=== PATIENT | female | born 1950 | race Caucasian/White ===

== ENCOUNTER 2017-02-19 23:08 | Inpatient (IN) | payer MEDICARE ==
[~2017-02-19] VITALS: Ht 152.4 cm; Wt 123.7 kg
[~2017-02-19 23:08] MED LIST: FUROSEMIDE20 MG PO; OXYBUTYNIN CHLORIDE PO
[2017-02-20] VITALS (21 sets, daily range): BP systolic 87–182; BP diastolic 57–110; Ht 152.4 cm; Wt 123.7 kg
[2017-02-20] LABS: HEMATOCRIT 25.8 % (36.0-48.0); HEMOGLOBIN 8.6 g/dL (12-16); MCH 31.4 pg (26.0-34.0); MCHC 33.3 g/dL (31.0-37.0); MCV 94.2 fL (80.0-100.0); MEAN PLATELET VOLUME 11.5 fL (7.4-10.4); PLATELET COUNT 200 10x3/uL (130-400); RBC 2.74 10x6/uL (4.00-5.40); RDW 14.4 % (11.5-14.5); WBC 38.7 10x3/uL (4.8-10.8)
[2017-02-20 00:23] LABS: EOSINOPHILS 1 % (0-7); LYMPHOCYTES 5 % (15-50); MONOCYTES 7 % (2-11); NEUTROPHILS 87 % (40-80); PLATELET ESTIMATE NORMAL
[2017-02-20 00:47] LABS: ALBUMIN 2.1 g/dL (3.4-5.0); ALT (SGPT) 23 U/L (10-68); BILIRUBIN - TOTAL 0.53 mg/dL (0.2-1.3); CALC OSMOLALITY 264 mosm/kg (275-300); CALCIUM 8.2 mg/dL (8.5-10.1); CHLORIDE - SERUM 91 mmol/L (98-107); CKMB 0.2 U/L (0.0-3.6); CREATINE KINASE 33 UL (21-215); CREATININE - SERUM 2.5 mg/dL (0.6-1.3); GLUCOSE 143 mg/dL (74-106); POTASSIUM - SERUM 4.5 mmol/L (3.5-5.1); PRO BNP 14117 pg/mL (0-125); PROTEIN - SERUM 6.6 g/dL (6.4-8.2); SODIUM 128 mmol/L (136-145); UREA NITROGEN 30 mg/dL (7-18); eGFR NON AFRICAN AMERICAN 20 mL/min (90-120)
[2017-02-20 01:12] LABS: APPEARANCE TURBID (CLEAR); BILIRUBIN NEGATIVE (NEGATIVE); COLOR YELLOW (YELLOW); GLUCOSE NEGATIVE (NEGATIVE); KETONE NEGATIVE (NEGATIVE); LEUKOCYTE ESTERASE 2+ (NEGATIVE); NITRITE POSITIVE (NEGATIVE); PROTEIN 2+ mg/dL (NEGATIVE); SPECIFIC GRAVITY 1.005 (1.005-1.020); UROBILINOGEN NORMAL (NORMAL)
[2017-02-20 01:15] LABS: BACTERIA MANY /hpf (NONE SEEN); EPITHELIAL CELLS 0-5 /hpf (0-5); WHITE CELLS - URINE >50 /hpf (0-5)
[2017-02-20 01:16] LABS: ALKALINE PHOSPHATASE 145 U/L (46-116)
--- NOTE | 2017-02-20 04:45 | NUR ---
ARRIVED TO ROOM 2308. ASSISTED X4 TO ICU BED. UNABLE TO DO MUCH MOVEMENT ON HER OWN. RT SIDE WEAK FROM STROKE IN NOVEMBER. TAPE OF RT ARM/SHOULDER FROM REHAB FACILITY. GENERALIZED EDEMA NOTED. INCONTINENT BRIEF ON AND ASSESSED POSTERIOR AREA. SLIGHT RED IN COLOR TO BUTTOCKS/PERINEAL AREA BUT NO PRESSURE ULCERS NOTED. LEFT AC PIV WITH NS INFUSING. O2 @ 2LPM/NC. PLACED ON CONTINUOUS CARDIAC MONITORING-HR 130-140'S AFIB/FLUTTER. B/P 100'S SYSTOLIC. LETHARGIC BUT ANSWERS SOME QUESTIONS. UNABLE TO GET SOME QUESTIONS ANSWERED. GLOVER PLACED IN SENIOR LIVING TO GRAVITY WITH YELLOW, SEDIMENT FILLED URINE-16 SRI LANKAN GLOVER. REPORTS COMING TO ER DUE TO FEVER. NS @ 100ML/HR STARTED VIA ALARIS IV PUMP. LEFT FA 20G PIV SALINE LOCKED. WILL MONITOR.
[2017-02-20] MEDS ORDERED: LIPITOR40 MG PO (05:19)
[2017-02-20] MEDS ORDERED: ULTRAM50 MG PO (05:21)
[2017-02-20] MEDS ORDERED: ACETAMINOPHEN325 MG PO (05:22)
[2017-02-20] MEDS ORDERED: MILK OF MAGNESI30 ML PO (05:22)
[2017-02-20] MEDS ORDERED: GAS-X80 MG PO (05:23)
[2017-02-20] MEDS ORDERED: ROBAXIN500 MG PO (05:24)
[2017-02-20 05:26] LABS: CKMB 0.3 U/L (0.0-3.6); CREATINE KINASE 22 UL (21-215)
[2017-02-20] MEDS ORDERED: NOVOLOG100 U/M1 SC ×2 (05:26→05:28)
[2017-02-20 05:27] LABS: TROPONIN-I 0.106 ng/mL (0.000-0.060)
[2017-02-20] MEDS ORDERED: NOVOLOG100 U/M1 SQ (05:29)
[2017-02-20] MEDS ORDERED: NYSTATIN1 PWD TOPICAL (05:31)
[2017-02-20] MEDS ORDERED: KLOR-CON M2020 MEQ PO (05:34)
[2017-02-20] MEDS ORDERED: PROTONIX40 MG PO (05:34)
[2017-02-20] MEDS ORDERED: METOPROLOL TART50 MG PO (05:35)
[2017-02-20] MEDS ORDERED: GLUCOPHAGE500 MG PO (05:36)
[2017-02-20] MEDS ORDERED: ZINC-220220 MG PO (05:39)
[2017-02-20] MEDS ORDERED: ASCORBIC ACID500 MG PO (05:39)
[2017-02-20] MEDS ORDERED: CENTRUM SILVER1 TA1 PO (05:41)
[2017-02-20] MEDS ORDERED: PLAVIX75 MG PO (05:42)
[2017-02-20] MEDS ORDERED: LANTUS SOL100 UNIT/1 SC (05:45)
[2017-02-20] MEDS ORDERED: PRINIVIL20 MG PO (05:46)
--- NOTE | 2017-02-20 05:51 | NUR ---
DR. BEDOLLA CONSULTED AND INFORMED OF HEART RATE AND TROPONIN RESULTS. NEW ORDERS RECEIVED.
--- NOTE | 2017-02-20 10:26 | NUR ---
0700 RECEIVED PT RESTING IN BED EYES CLOSED, WILL OPEN EYES TO SPEECH AND ANSWERS QUESTIONS APPROP. HR ELEVATED IN 130-140'S A FIB. NO TEMP NOTED. NO COMPLAINTS AND NO REQUEST AT THIS TIME. 0800 PAGED TUBE MOLDER FIBERGLASS AND NEW ORDERS RECEIVED FOR LOPRESSOR 10MG IV Q 4, 1ST DOSE GIVEN, NO AFFECT NOTICED, HR REMAINS ELEVATED. 0930 TUBE MOLDER FIBERGLASS IN UNIT, ASSESSED PT, AWARE OF ELEVATED HR, NEW ORDER FOR BETAPACE 120MG PO, FIRST DOSE GIVEN. PT CHOKES AND COUGHS WITH THIN WATER, ST CONSULT ORDERED BY . 1000 PCP IN UNIT FOR ROUNDS ASSESSED PT, QUESTIONS ANSWERED, DNR DIGNED BY MD AND ORANGE SHEET PLACED IN FRONT OF CHART. PT RESTING QUIETLY NO COMPLAINTS AT THIS TIME. HR REMAINES IN 120-140'S A FIB.
--- NOTE | 2017-02-20 10:58 | NUR ---
PAGED CARDIOLIOGIST BACK AT 1050 RETURNED CALL AT 1051 INFORMED OF CONTINUED ELEVATED HR, NO NEW ORDERS GIVEN,STATED HE WAS OK WITH HEART RATE AT THIS TIME. DID NOT WANT TO ADD ANY MORE MEDS. WILL CONT TO MONITOR
[2017-02-20 11:18] LABS: CKMB 0.6 U/L (0.0-3.6); CREATINE KINASE 25 UL (21-215)
[2017-02-20 16:46] LABS: CKMB 0.6 U/L (0.0-3.6); CREATINE KINASE 23 UL (21-215)
[2017-02-20 16:49] LABS: TROPONIN-I 0.095 ng/mL (0.000-0.060)
--- NOTE | 2017-02-20 23:30 | NUR ---
1939- REPORT RECVD. CARE ASSUMED. INITIAL ASSMNT COMPLETED. SEE FLOWSHEET FOR ALL FINDINGS. AOX4. PERRLA. RIGHT SIDED WEAKNESS WITH IMPAIRED ROM NOTED. RESP UNLABORES. HYPERTENSIVE. UCAFIB ON THE MONITOR. LOPRESSOR GIVEN. HOB UP. C/L IN REACH. CONT POC. 2029- INCONTINENT OF BOWEL. BATH GIVEN. LINENS CHANGED. POSITIONED FOR COMFORT. 2129- HS MEDS GIVEN IN PUDDING TO PROMOTE SWALLOWING. NO SIG CHANGES. 2329- REASSESSMENT COMPLETED. SEE FLOWSHEET. TURNED AND REPOSITIONED. PRM TRAMADOL EFFECTIVE WITH DECREASING DISCOMFORT.
[2017-02-21] VITALS (24 sets, daily range): BP systolic 128–183; BP diastolic 81–136
--- NOTE | 2017-02-21 01:30 | NUR ---
TURNED AND REPOSITIONED. PO FLUIDS AT BEDSIDE. VSS. HYPERTENSIVE. UCAFIB ON THE MONITOR. DENIES DISCOMFORT. HOB UP. C/L IN REACH. CONT CURRENT POC.
--- NOTE | 2017-02-21 03:30 | NUR ---
REASSESSMENT COMPLETED. SEE FLOWSHEET FOR ALL FINDINGS. TURNED AND REPOSITIONED. RESTING. VSS. UCAFIB ON THE MONITOR. F/C PATENT WITH DARK UOP. HOB UP. C/L IN REACH. CONT CURRENT POC.
--- NOTE | 2017-02-21 05:00 | NUR ---
TURNED AND REPOSITIONED. PO FLUIDS PROVIDED. DENIES NEEDS. VSS. HOB UP. C/L IN REACH. CONT POC.
--- NOTE | 2017-02-21 10:26 | NUR ---
0700 RECEIVED PT IN BED EYES OPEN AWAKE ALERT ORIENTED, NO DISTRESS NOTED, NO COMPLAINTS. SEE ASSESSMENT. 0730 BREAKFAST GIVEN, PT CONSUMED APPROX 25% 0800 PT NOTED TO HAVE BM, LINES CHANGED AND PT REPOSITIONED, PRN PAIN MED GIVEN, PT C/O PAIN 01/23 GENERAL 1000 NO COMPLAINTS IN BED RESTING QUEITLY AT THIS TIME.
[2017-02-21 11:36] LABS: BASOPHILS 0.1 % (0-2); EOSINOPHILS 0 % (0-7); HEMATOCRIT 26.4 % (36.0-48.0); HEMOGLOBIN 8.6 g/dL (12-16); IMMATURE GRANULOCYTES 3.9 % (0-5); LYMPHOCYTES 3.4 % (15-50); MCH 30.8 pg (26.0-34.0); MCHC 32.6 g/dL (31.0-37.0); MCV 94.6 fL (80.0-100.0); MEAN PLATELET VOLUME 11.5 fL (7.4-10.4); MONOCYTES 10.4 % (2-11); NEUTROPHILS 82.2 % (40-80); PLATELET COUNT 185 10x3/uL (130-400); RBC 2.79 10x6/uL (4.00-5.40); RDW 14.8 % (11.5-14.5); WBC 28.7 10x3/uL (4.8-10.8)
[2017-02-21 11:43] LABS: ANION GAP 19.6 mmol/L (8-16); CALCIUM 7.9 mg/dL (8.5-10.1); CARBON DIOXIDE 21.1 mmol/L (21.0-32.0); CREATININE - SERUM 2.9 mg/dL (0.6-1.3); POTASSIUM - SERUM 4.7 mmol/L (3.5-5.1)
--- NOTE | 2017-02-21 23:30 | NUR ---
1929- REPORT RECVD. CARE ASSUMED. SHIFT ASSESSMENT COMPLETED PER FLOWSHEET. SEE FOR ALL FINDINGS. AWAKE AND AOX4. PERRLA. RIGHT SIDED WEAKNESS NOTED. RESP SHALLOW. LUNG SOUNDS DIM THRU OUT. SPO2 95% ON O2 AT 2 LPM NC. UCAFIB ON THE MONITOR. LOPRESSOR IN USE. HR 114. SYS B/P WITHIN PARAMETERS. PULSES PALP. GENERALIZED EDEMA PRESENT. ABD SOFT, BSA X4. F/C PATENT WITH DARK UOP. AFEBRILE. RECENTLY BATHED AND REPOSITIONED. DENIES NEEDS. HOB UP. C/L IN REACH. CONT CURRENT POC. 2129- HS MEDS GIVEN IN WHOLE IN PUDDING. PRN ULTRAM GIVEN FOR INCREASED PAIN LEVEL. TURNED AND REPOSITIONED. VSS. HOB UP. C/L IN REACH. CONT CURRENT POC. 2329- REASSESSMENT COMPLETED. SEE FLOWSHEET FOR ALL FINDINGS. TURNED AND REPOSITIONED. RESTING. VSS. UCAFIB ON THE MONITOR. AFEBRILE. SCDS ON. EXTREMITIES ELEVATED. HEELS BRIDGED. F/C PATENT WITH DARK UOP. HOB UP. C/L IN REACH. CONT CURRENT POC.
[2017-02-22] VITALS (25 sets, daily range): BP systolic 97–153; BP diastolic 64–118
--- NOTE | 2017-02-22 01:30 | NUR ---
TURNED AND REPOSITIONED. DENIES NEEDS. VSS. UCAFIB ON THE MONITOR. SPO2 96%. HOB UP. C/L AND PO FLUIDS IN REACH. CONT CURRENT POC.
--- NOTE | 2017-02-22 03:30 | NUR ---
REASSESSMENT COMPLETED. SEE FLOWSHEET FOR ALL FINDINGS. TURNED AND REPOSITIONED. RESTING. VSS. UCAFIB ON THE MONITOR. PRN ULTRAM GIVEN FOR INCREASED PAIN LEVEL. AFEBRILE. SCDS ON. EXTREMITIES ELEVATED. HEELS BRIDGED. F/C PATENT WITH DARK UOP. HOB UP. C/L IN REACH. CONT CURRENT POC.
[2017-02-22 04:29] LABS: BASOPHILS 0.3 % (0-2); EOSINOPHILS 0.2 % (0-7); HEMATOCRIT 26.7 % (36.0-48.0); HEMOGLOBIN 8.8 g/dL (12-16); IMMATURE GRANULOCYTES 5.7 % (0-5); LYMPHOCYTES 4.2 % (15-50); MCH 30.7 pg (26.0-34.0); MEAN PLATELET VOLUME 11.6 fL (7.4-10.4); MONOCYTES 13.5 % (2-11); NEUTROPHILS 76.1 % (40-80); PLATELET COUNT 179 10x3/uL (130-400); RBC 2.87 10x6/uL (4.00-5.40); RDW 14.8 % (11.5-14.5); WBC 27.6 10x3/uL (4.8-10.8)
[2017-02-22 04:38] LABS: ANION GAP 17.3 mmol/L (8-16); CALCIUM 7.4 mg/dL (8.5-10.1); CARBON DIOXIDE 22.6 mmol/L (21.0-32.0); CREATININE - SERUM 2.7 mg/dL (0.6-1.3)
[2017-02-22 04:42] LABS: POTASSIUM - SERUM 3.9 mmol/L (3.5-5.1)
--- NOTE | 2017-02-22 05:25 | NUR ---
RESTING WITH NO DISTRESS. VSS. DENIES NEEDS. TURNED AND REPOSITIONED. HOB UP. C/L IN REACH. CONT CURRENT POC.
--- NOTE | 2017-02-22 06:50 | NUR ---
SMALL LIQUID STOOL. BATH GIVEN. LINENS CHANGED.
--- NOTE | 2017-02-22 07:30 | NUR ---
PATIENT REPORT RECEIVED, AND CARE TAKEN OVER PATIENT.
--- NOTE | 2017-02-22 08:23 | NUR ---
PATIENT ASSESSMENT COMPLETED SEE SHIFT ASSESSMENT. PATIENT IS ALERT AND ORIENTED ABLE TO COMMNUNICATES NEEDS WELL. PATIENT DOES SEEM TO HAVE TO STRAIN TO GET WORDS TO COME OUT IN FORM BUT SHE DOES WELL COMMUNICATING
--- NOTE | 2017-02-22 09:05 | NUR ---
PATIENT HAD MUCOUSY DIARRHEA INCONTENCE. PATIENT CLEANED, NYSTOP APPLIED PER ORDER, AND BARRIER CREAM APPLIED TO BUTTOCKS.
--- NOTE | 2017-02-22 09:20 | NUR ---
NUTRITION MONITORING & EVAL CHART REVIEWED. RENAL ADA DIET WITH ~ 50% INTAKE RECENT MEALS. WILL CONTINUE TO PROVIDE DIET, MONITOR PO INTAKE. RD FOLLOWING
--- NOTE | 2017-02-22 10:20 | NUR ---
DR. HURLEY HERE, IN TO SEE PATIENT AND FAMILY. SPOKE WITH FAMILY ABOUT PATIENT BEING ON HOSPICE.
--- NOTE | 2017-02-22 11:19 | NUR ---
RUFINA HERE TO ASK PATIENT QUESTIONS ABOUT/FOR MEDICAID. PATIENT IS AWAKE AND ABLE TO ANSWER QUESTIONS.
--- NOTE | 2017-02-22 12:15 | NUR ---
PATIENT IS AWAKE AND READY FOR LUNCH. ASSISTED PATIENT IN SETTING UP TRAY, AND PREPARING FOOD FOR PATIENT TO EAT.
--- NOTE | 2017-02-22 14:00 | NUR ---
PATIENT IS RESTING AT THIS TIME. CALL LIGHT WITHIN REACH AND BED IN LOW POSISTION.
--- NOTE | 2017-02-22 16:40 | NUR ---
PATIENT'S BLOOD PRESSURE HAS BEEN TRENDING LOWER. METOPROLOL HELD AT THIS TIME DUE TO BLOOD PRESSURE.
--- NOTE | 2017-02-22 18:35 | NUR ---
DAUGHTER IN ROOM VISITING WITH PATIENT AT THIS TIME. SHE STATES HER MOTHER IS VERY DIFFERENT THESE LAST FEW DAYS THAN HER NORMAL. PATIENT'S HEAD IS DIVIATED TO THE LEFT, THAT IS NEW, AND SHE SAYS THAT SHE IS MUCH WEAKER THAN NORMAL.
--- NOTE | 2017-02-22 19:45 | NUR ---
REPORT RECIEVED, SHIFT ASSESSMENT COMPLETE, PT IS ALERT AND ORIENTED, ON 2L NC WITH 97% O2 SAT, LUNGS DIMINISHED IN ALL LOBES, CM-AFIB, PATENT LEFT FA PIV...SEE FLOW SHEET, ABDOMEN IS SOFT AND ROUND WITH ACTIVE BS, PATENT F/C WITH CONCENTRATED UOP, EDEMA NOTED IN ALL EXTREMETIES, ALL PPP, VSS, CALL LIGHT IN REACH
--- NOTE | 2017-02-22 21:15 | NUR ---
NO VISITORS AT THIS TIME, WILL CON'T TO MONITOR
--- NOTE | 2017-02-22 23:14 | NUR ---
REASSESSMENT COMPLETE, PT RESTING AT THIS TIME, NO NEEDS NOTED, WILL CON'T TO MONITOR
[2017-02-23] VITALS (26 sets, daily range): BP systolic 80–143; BP diastolic 28–99
--- NOTE | 2017-02-23 01:00 | NUR ---
REPOSITONED FOR COMFORT,
--- NOTE | 2017-02-23 03:15 | NUR ---
REASSESSMENT COMPLETE, NO CHANGES NOTED, PT REPOSITIONED FOR COMFORT, WILL CON'T TO MONITOR
[2017-02-23 05:19] LABS: BASOPHILS 0.3 % (0-2); EOSINOPHILS 0.2 % (0-7); HEMATOCRIT 28.7 % (36.0-48.0); HEMOGLOBIN 9.6 g/dL (12-16); LYMPHOCYTES 5.2 % (15-50); MCH 31.4 pg (26.0-34.0); MCHC 33.4 g/dL (31.0-37.0); MCV 93.8 fL (80.0-100.0); MEAN PLATELET VOLUME 11.8 fL (7.4-10.4); MONOCYTES 15.6 % (2-11); NEUTROPHILS 67.7 % (40-80); PLATELET COUNT 183 10x3/uL (130-400); RBC 3.06 10x6/uL (4.00-5.40); RDW 15.2 % (11.5-14.5)
[2017-02-23 05:36] LABS: ANION GAP 16.4 mmol/L (8-16); CALCIUM 7.8 mg/dL (8.5-10.1); CARBON DIOXIDE 22.8 mmol/L (21.0-32.0); CREATININE - SERUM 2.7 mg/dL (0.6-1.3)
[2017-02-23 05:38] LABS: POTASSIUM - SERUM 3.2 mmol/L (3.5-5.1)
--- NOTE | 2017-02-23 06:00 | NUR ---
NO VISITORS AT THIS TIME, WILL CON'T TO MONITOR
--- NOTE | 2017-02-23 07:10 | NUR ---
DR. AKHTAR IN ROOM TO SEE PATIENT. HE WILL WRITE NEW ORDERS FOR THIS PATIENT.
--- NOTE | 2017-02-23 07:33 | NUR ---
WILL CONSULT ID FOR PATIENT PER MD ORDER.
--- NOTE | 2017-02-23 08:45 | NUR ---
DR. NICOLE CALLED FOR CONSULT, AND SHE STATED SHE WOULD SEE PATIENT THIS AFTERNOON.
--- NOTE | 2017-02-23 11:30 | NUR ---
PATIENT SLEEPING NO DISTRESS NOTED AT THIS TIME. CALL LIGHT WITH IN REACH BED IS IN LOW POSITION.
--- NOTE | 2017-02-23 13:00 | NUR ---
PATIENT DID NOT WANT MUCH LUNCH, HAD DIFFUCULTY SWALLOWING PILLS DOES REQUIRE PUDDING WITH MEDS. PATIENT DENIES ANY NEEDS AT THIS TIME.
--- NOTE | 2017-02-23 15:30 | NUR ---
PATIENT SLEEPING NO CHANGES IN CONDITION
--- NOTE | 2017-02-23 15:40 | NUR ---
* Is the patient Alert and Oriented? Yes 0 * Preadmission Environment [facility] 0 * Facility Name [facility] 0 * ADLs Partial Dependent 0 * Partial ADLs (Assistance needed) Ambulation Bathing Dressing Medication Management Toileting Transfers 0 * List name and contact numbers for known caregivers / representatives who currently or will assist patient after discharge: Ronnell Wells [phone] 0 * Can the patient safely return to the preadmission environment? Yes 0 * Has this patient been hospitalized within the prior 30 days at any hospital? No 02/23/2017 15:41 DCP: Discharge Planning Patient Name: HOMER CHANG Admission Status: ER Accout number: [id number] Admission Date: 02-20-2017 : 1950 Admission Diagnosis:DISORIENTATION, UNSPECIFIED Attending: MIGUEL Current LOS: 3 Planned Disposition: [facility] Primary Insurance: MEDICARE A & B Discharge Planning Comments: Patient awake & alert - very fatigued. Answers few questions but becomes extremely fatigued. Call placed to Nikki reynaga - voice message left for her to return call. Confirmed with [facility] that patient was there prior to admission in senior living bed. They will accept patient back at discharge. Awaiting return call from ronnell. CM will follow & assist as needed. Director Of Publications: Alicia Lynn
--- NOTE | 2017-02-23 17:33 | NUR ---
METOPROLOL HELD DUE TO BLOOD PRESSURE. PATIENT IS STILL SLEEPY BUT AROUSES EASILY TO VERBAL STIMULI.
[2017-02-23 18:51] LABS: APPEARANCE HAZY (CLEAR); BILIRUBIN NEGATIVE (NEGATIVE); COLOR YELLOW (YELLOW); GLUCOSE NEGATIVE (NEGATIVE); KETONE NEGATIVE (NEGATIVE); LEUKOCYTE ESTERASE TRACE (NEGATIVE); NITRITE NEGATIVE (NEGATIVE); PROTEIN TRACE mg/dL (NEGATIVE); SPECIFIC GRAVITY 1.015 (1.005-1.020); UROBILINOGEN NORMAL (NORMAL)
[2017-02-23 18:52] LABS: BACTERIA MODERATE /hpf (NONE SEEN); EPITHELIAL CELLS 0-5 /hpf (0-5); RED CELLS - URINE 25-50 /hpf (0-5); WHITE CELLS - URINE 0-5 /hpf (0-5)
--- NOTE | 2017-02-23 19:15 | NUR ---
REPORT RECVD. CARE ASSUMED. INITIAL ASSMNT COMPLETED. SEE FLOWSHEET FOR ALL FINDINGS. RESTING WITH EYES CLOSED. AROUSES TO VOICE EASILY. AOX4. APHASIC. PERRLA.RIGHT SIDE FLACCID. RESP UNLABORED. SHALLOW. LUNG SOUNDS DIM THRU OUT. UCAFIB ON THE MONITOR. PULSES PALP, WEAK X4. GENERALIZED EDEMA NOTED. AFEBRILE. SCDS IN USE. ABD SOFT, DISTENDED WITH HYPO BS X 4. F/C PATENT WITH CLOUDY YELLOW UOP. TURNED AND REPOSITIONED FOR COMFORT AND SKIN INTEGRITY. HOB UP. C/L IN REACH. CONT CURRENT POC.
--- NOTE | 2017-02-23 21:00 | NUR ---
HOSPOCE NURSE AT BEDSIDE WITH THIS NURSE TO ASSESS NEED FOR/DESIRE FOR HOSAPINE. PT IS AOC4. APHASIC BUT ABLE TO COMMUNICATE WELL. PT REFUSED HOSPICE VERBALLY THREE TIMES. HOSPICE NURSE AND I SPOKE WITH DAUGHTER ANS ALL AGREED HOSPICE SERVICES ARE NOT NEEDED AT THIS TIME. HS MEDS GIVEN. TURNED AND REPOSITIONED. PRN ULTRAM PROVIDED FOR PAIN CONTROL. HOB UP. C/L IN REACH. CONT CURRENT POC.
--- NOTE | 2017-02-23 23:15 | NUR ---
REASSESSMENT COMPLETED. SEE FLOWSHEET FOR ALL FINDINGS. RESTING WITH EYES CLOSED. AROUSES TO VOICE EASILY. AOX4. APHASIC. PERRLA.RIGHT SIDE FLACCID. RESP UNLABORED. SHALLOW. LUNG SOUNDS DIM THRU OUT. UCAFIB ON THE MONITOR. PULSES PALP, WEAK X4. GENERALIZED EDEMA NOTED. AFEBRILE. SCDS IN USE. ABD SOFT, DISTENDED WITH HYPO BS X 4. F/C PATENT WITH CLOUDY YELLOW UOP. TURNED AND REPOSITIONED FOR COMFORT AND SKIN INTEGRITY. HOB UP. C/L IN REACH. CONT CURRENT POC.
[2017-02-24] VITALS (25 sets, daily range): BP systolic 99–149; BP diastolic 57–87
--- NOTE | 2017-02-24 01:15 | NUR ---
TURNED AND REPOSITIONED. VSS. NO SIG CHANGES. NO NEEDS VOICED. HOB UP. C/L IN REACH. CONT CURRENT POC.
--- NOTE | 2017-02-24 03:15 | NUR ---
REASSESSMENT COMPLETED. SEE FLOWSHEET FOR ALL FINDINGS. RESTING WITH EYES CLOSED. AROUSES TO VOICE EASILY. AOX4. APHASIC. PERRLA.RIGHT SIDE FLACCID. RESP UNLABORED. SHALLOW. LUNG SOUNDS DIM THRU OUT. UCAFIB ON THE MONITOR. PULSES PALP, WEAK X4. GENERALIZED EDEMA NOTED. AFEBRILE. SCDS IN USE. ABD SOFT, DISTENDED WITH HYPO BS X 4. F/C PATENT WITH CLOUDY YELLOW UOP. TURNED AND REPOSITIONED FOR COMFORT AND SKIN INTEGRITY. HO UP. C/L IN REACH. CONT CURRENT POC.
[2017-02-24 04:39] LABS: BASOPHILS 0.5 % (0-2); EOSINOPHILS 0.2 % (0-7); HEMATOCRIT 28.7 % (36.0-48.0); HEMOGLOBIN 9.6 g/dL (12-16); IMMATURE GRANULOCYTES 19.9 % (0-5); LYMPHOCYTES 7.7 % (15-50); MCH 31.2 pg (26.0-34.0); MCHC 33.4 g/dL (31.0-37.0); MCV 93.2 fL (80.0-100.0); MONOCYTES 22.3 % (2-11); NEUTROPHILS 49.4 % (40-80); PLATELET COUNT 194 10x3/uL (130-400); RBC 3.08 10x6/uL (4.00-5.40); RDW 15.2 % (11.5-14.5); WBC 30.5 10x3/uL (4.8-10.8)
[2017-02-24 04:55] LABS: ANION GAP 12.8 mmol/L (8-16); CARBON DIOXIDE 26.2 mmol/L (21.0-32.0); CREATININE - SERUM 2.6 mg/dL (0.6-1.3); PHOSPHOROUS 3.9 mg/dL (2.5-4.9)
--- NOTE | 2017-02-24 05:20 | NUR ---
BATH GIVEN. LINENS CHANGED. AIR OVERLAY IN USE. VSS. POSITIONED FOR COMFORT. HOB UP. C/L IN REACH. CONT CURRENT POC.
--- NOTE | 2017-02-24 08:24 | NUR ---
SHIFT ASSESSMENT COMPLETE. PATIENT DECLINES BREAKFAST AT THIS TIME, STATES SHE JUST WANTS TO SLEEP.
--- NOTE | 2017-02-24 09:59 | NUR ---
NUTRITION MONITORING & EVAL CHART REVIEWED, PT SLEEPING. NO INTAKE RENAL ADA BREAKFAST. WILL CHANGE DIET ORDER TO HAVE MEATS CHOPPED. RD FOLLOWING
--- NOTE | 2017-02-24 10:22 | NUR ---
DR. HURLEY HERE IN TO SEE PATIENT NEW ORDERS RECEIVED AND NOTED.
--- NOTE | 2017-02-24 10:45 | NUR ---
PATIENT SLEEPING AROUSES TO VERBAL STIMULI EASILY. PATIENT HAS CYANOTIC NAILBEDS WORSE ON R HAND THAN LEFT. DR. SERVIN HERE IN TO SEE PATIENT AND AWARE OF NAILBEDS AND MOTTLING.
--- NOTE | 2017-02-24 11:30 | NUR ---
NEW ORDERS RECEIVED FROM DR. CANDELARIA. IVF INCREASED TO 50ML ORDERED.
--- NOTE | 2017-02-24 13:00 | NUR ---
PATIENT SLEEPING WELL AROUSES TO VERBAL STIMULI. REPOSISTIONED FOR COMFORT.
--- NOTE | 2017-02-24 16:20 | NUR ---
IV SITE IS EDEMATOUS AND LEAKING AT SITE WITH REDNESS AT SITE. IV DC'D AND WILL LOOK FOR NEW SITE.
--- NOTE | 2017-02-24 17:00 | NUR ---
ATTEMPTED IV X2 STICKS AND UNSUCCESSFUL. DR. GUALLPA CONSULTED FOR CENTRAL LINE.
--- NOTE | 2017-02-24 17:56 | NUR ---
CONSENT RECEIVED VERBALLY FROM PATIENT AND DAUGHTER VIA PHONE FOR CENTRAL LINE PLACEMENT.
--- NOTE | 2017-02-24 18:08 | NUR ---
DR. PERRY HERE TO INSERT CENTRAL LINE.
--- NOTE | 2017-02-24 19:20 | NUR ---
REPORT RECIEVED. ASSESSMENT COMPLETE PER FLOW SHEET. VSS WILL CONTINUE TO MONITOR
--- NOTE | 2017-02-24 21:17 | NUR ---
FAMILY AT BEDSIDE. GIVEN UPDATE. ATE 40% OF PM MEAL WITH ASSISTANCE. VSS WILL CONTINUE TO MONITOR
--- NOTE | 2017-02-24 23:20 | NUR ---
REASSESSMENT COMPELTE PER FLOW SHEET. VSS. NO NEW CHAGNES. WILL CONTINUE TO MONITOR
[2017-02-25] VITALS (24 sets, daily range): BP systolic 100–143; BP diastolic 66–89
--- NOTE | 2017-02-25 03:00 | NUR ---
REASSESSMENT COMPLETE PER FLOW SHEET. PRN ULTRAM ADM FOR PAIN. DENIES FURTHER NEEDS. VSS. WILL CONTINUE TO MONITOR
[2017-02-25 03:58] LABS: BASOPHILS 0.3 % (0-2); EOSINOPHILS 0.4 % (0-7); HEMATOCRIT 25.3 % (36.0-48.0); HEMOGLOBIN 8.6 g/dL (12-16); IMMATURE GRANULOCYTES 24.7 % (0-5); LYMPHOCYTES 9.2 % (15-50); MCH 31.4 pg (26.0-34.0); MCV 92.3 fL (80.0-100.0); MEAN PLATELET VOLUME 11.3 fL (7.4-10.4); MONOCYTES 24.6 % (2-11); NEUTROPHILS 40.8 % (40-80); PLATELET COUNT 154 10x3/uL (130-400); RBC 2.74 10x6/uL (4.00-5.40); RDW 15.2 % (11.5-14.5); WBC 30.4 10x3/uL (4.8-10.8)
[2017-02-25 04:24] LABS: ANION GAP 13.3 mmol/L (8-16); CALCIUM 8.1 mg/dL (8.5-10.1); CARBON DIOXIDE 25.5 mmol/L (21.0-32.0); CREATININE - SERUM 2.2 mg/dL (0.6-1.3)
[2017-02-25 04:29] LABS: POTASSIUM - SERUM 2.8 mmol/L (3.5-5.1)
--- NOTE | 2017-02-25 05:09 | NUR ---
FED NOEMÍ COULTER PER REQUEST. ATE 100% DENIES FURTHER NEEDS.
--- NOTE | 2017-02-25 06:00 | NUR ---
DR GIOVANA WISDOM. UPDATE K 2.8 T ORDER 40MEQ PIV OVER 4 H TO BE ADM. WILL TX REDRAW SCHEDULED AT 1000.
--- NOTE | 2017-02-25 07:00 | NUR ---
PT AWAKE ALERT AND ORIENTED X4. ABLE TO VERBALIZE NEEDS AND OBEY COMMANDS. COMPLAINS OF DISCOMFORT AT THIS TIME AND NEED FOR REPOSITIONING. PT REPOSITIONED PER REQUEST. PT IN UNCONTROLLED AFIB AT THIS TIME. O2 SAT STABLE ON 2L NC. SWELLING IN EXTREMITIES X4, FEET ELEVATED ON PILLOWS TO DECREASE SWELLING. PT STATES SHE IS HUNGRY, WILL HELP FEED PT DUE TO WEAKNESS AND FLACCID RIGHT SIDE OF BODY. COMPLETE SHIFT ASSESSMENT DOCUMENTED PER FLOWSHEET. WILL CONTINUE TO MONITOR CLOSELY.
--- NOTE | 2017-02-25 09:00 | NUR ---
PT REPOSITIONED IN BED AND FED BREAKFAST. PT TOLERATED MEAL BUT APPETITE IS POOR AT THIS TIME. STATES THAT SHE WILL EAT AT LUNCH. REMAINS IN UNCONTROLLED AFIB. MORNING MEDICATION GIVEN AND PT ABLE TO TAKE PO MEDS.
--- NOTE | 2017-02-25 11:00 | NUR ---
GLOVER CARE PERFORMED WITH KIT. PT REPOSITIONED IN BED. COMPLAINING OF PAIN AT THIS TIME. CALL LIGHT WITHIN REACH. WILL CONTINUE TO MONITOR
--- NOTE | 2017-02-25 13:00 | NUR ---
PT ASLEEP AT THIS TIME. PHYSICAL THERAPY CONSULT. WILL CONTINUE TO MONITOR.
--- NOTE | 2017-02-25 13:22 | NUR ---
02/25/2017 13:14 DCP: Discharge Planning CM spoke with daughter, Nikki, via telephone. Answered questions regarding POC & hospice options. She states she is interested in hospice services - she states patient has been declining rapidly since her stroke a few months ago. She prefers to have hospice services here at [facility] if she qualifies, otherwise, she is agreeable for patient to return to [facility] on hospice. Explained [facility] has contract with [facility] - agreeable to evaluation. Referral faxed and called to Christina with [facility]. Requested Christina call Nikki to arrange meeting time. CM will follow.
--- NOTE | 2017-02-25 14:00 | NUR ---
ATTEMPTED TO CALL DR HURLEY AND DR AKHTAR ABOUT LOW MAGNESIUM AND REDRAW POTASSIUM 3.4. UNABLE TO REACH AT THIS TIME. WILL WAIT FOR FURTHER INSTRUCTION TO TREAT ABNORMAL LABS
--- NOTE | 2017-02-25 16:00 | NUR ---
HOSPICE CAME TO EVALUATE PT. SPOKE WITH ELBERT VINCENT AND FAMILY. PT IS AAOX4 AND ABLE TO CONVEY HER WISHES AND AT THIS TIME WANTS TO TREAT INFECTION. HOSPICE NURSE IS TO RETURN TOMORROW FOR FOLLOW UP.
--- NOTE | 2017-02-25 18:30 | NUR ---
PT FED DINNER TRAY AT BEDSIDE. FAMILY GIVEN REPORT. NO FURTHER CHANGES. CALL LIGHT WITHIN REACH
--- NOTE | 2017-02-25 19:20 | NUR ---
REPORT RECIEVED. ASSESSMENT COMPLETE PER FLOW SHEET. VSS. NO NEW CHANGES. WILL CONTINUE TO MONITOR
--- NOTE | 2017-02-25 20:40 | NUR ---
FED NOEMÍ COULTER PER REQUEST. ATE 100% DENIES FURTHER NEEDS.
--- NOTE | 2017-02-25 21:00 | NUR ---
FAMILY AT BEDSIDE. GIVEN UPDATE.
--- NOTE | 2017-02-25 23:20 | NUR ---
REASSESSMENT COMPLETE PER FLOW SHEET. VSS. NO NEW CHANGES. PT SLEEPING COMFORTABLY. WILL CONTINUE TO MONITOR
[2017-02-26] VITALS (22 sets, daily range): BP systolic 102–138; BP diastolic 56–85
--- NOTE | 2017-02-26 01:12 | NUR ---
REPOSITIONED ON L SIDE FOR COMFORT. NEEDS MET. VSS WILL CONTINUE TO MONITOR
--- NOTE | 2017-02-26 03:12 | NUR ---
REASSESSMENT COMPLETE PER FLOW SHEET. VSS. NO NEW CHANGES. WILL CONTINUE TO MONITOR
[2017-02-26 04:12] LABS: BASOPHILS 0.5 % (0-2); EOSINOPHILS 0.3 % (0-7); HEMATOCRIT 23.7 % (36.0-48.0); IMMATURE GRANULOCYTES 28.2 % (0-5); LYMPHOCYTES 7.8 % (15-50); MCH 31.6 pg (26.0-34.0); MCHC 33.8 g/dL (31.0-37.0); MCV 93.7 fL (80.0-100.0); MEAN PLATELET VOLUME 11.3 fL (7.4-10.4); NEUTROPHILS 39.2 % (40-80); PLATELET COUNT 135 10x3/uL (130-400); RBC 2.53 10x6/uL (4.00-5.40); RDW 15.5 % (11.5-14.5); WBC 33.3 10x3/uL (4.8-10.8)
[2017-02-26 04:25] LABS: ANION GAP 11.8 mmol/L (8-16); CALCIUM 8.3 mg/dL (8.5-10.1); CARBON DIOXIDE 28.3 mmol/L (21.0-32.0); CREATININE - SERUM 1.9 mg/dL (0.6-1.3); MAGNESIUM - SERUM 1.5 mg/dL (1.8-2.4); PHOSPHOROUS 2.3 mg/dL (2.5-4.9); POTASSIUM - SERUM 3.1 mmol/L (3.5-5.1)
--- NOTE | 2017-02-26 07:00 | NUR ---
REPORT RECEIVED. ASSUMED CARE OF PATIENT. PT RESTING QUIETLY AT THIS TIME. DENIES NEEDS. ON 2L NC. AIR OVERLAY MATTRESS. HAS RIGHT IJ WITH NS@KVO.RIGHT SIDE FLACCID. GINO-AREA EXCORIATION NOTED. HAS GLOVER CATHETER. IN SINUS RHYTHM AT THIS TIME. IS ON CONTACT ISOLATION
--- NOTE | 2017-02-26 10:24 | NUR ---
NUTRITION MONITORING & EVAL CHART REVIEWED. PT IN ISOLATION. TOLERATING RENAL ADA DIET BUT INTAKE POOR PER NURSING REPORT. WILL CONTINUE TO PROVIDE DIET, MONITOR PT PO INTAKE. RD FOLLOWING
--- NOTE | 2017-02-26 15:52 | NUR ---
PRBC UNIT STARTED.
--- NOTE | 2017-02-26 17:30 | NUR ---
DAUGHTER CALLED AND UPDATED ON PT. PT HAS BECOME BRADYCARDIC. HAS GONE DOWN INTO 40'S A COUPLE OF TIMES. OTHER VITALS STABLE. WILL CONTINUE TO MONITOR.
--- NOTE | 2017-02-26 18:28 | NUR ---
DAUGHTER AT BEDSIDE FOR VISITATION. BLOOD ADMINISTRATION COMPLETED AT 1815. NO DISTRESS NOTED. HR UPPER 50'S LO 60'S. SINUS
--- NOTE | 2017-02-26 19:00 | NUR ---
1899: Pt rec'd resting HOB 30 degrees with eyes open. Pupils LAURA+ bilat. Pt has right flaccid side. Pt able to move left side weakly vs gravity. Pt oriented x3. Speech slurred, but easy to understand. Pt has no c/o at this time. Pt breathing 022LNC with RR20x with SPO2 95%. Lungs with decreased bases bilat with auscultation. MMP and no cyanosis noted. Encouraged DBC. S1S2 regular SB 55-59 bpm on CM. PPPx4=bilat. Pt with generalized edma throughout. ABD soft tender at times, BS hypoactive x4. Paulino to gravity with >30 cc/hr. SR up x2, call light in reach and pt demonstrated use, Alarms on and audible.
--- NOTE | 2017-02-26 21:00 | NUR ---
2100: Pt oral care done at this time per request to include mouth moisturizer and lip moisturizer. Pt raised to 45 degrees for water intake. Pt coughed with first sips of water, but no coughing after. Enouraged small slow sips.
--- NOTE | 2017-02-26 23:00 | NUR ---
2300: Pt repositioned for comfort at this time. Pt c/o back pain at times. Pt extrem elevated off bed with pillow supports. No change in IVF/UOP. Pt remains SB 55-59bpm on CM. No change in Neuro assess.
[2017-02-27] VITALS (10 sets, daily range): BP systolic 125–169; BP diastolic 68–133
--- NOTE | 2017-02-27 01:00 | NUR ---
0100: Pt repositioned for comfort with pillow behind shoulders as per request. Oral care done and small sips of water provided. Pt had no difficulty with swallow at this time. Pt remains SB 59 on CM, 022LNC RR20x with SPO2 95%.
--- NOTE | 2017-02-27 04:30 | NUR ---
0430: Pt resting with eyes closed at this time. Easily arousable to verbal. Pt requested pain medicine for "aching" and being "uncomfortable" Pt repositioned x 2RNs with extrem off bed with pillow supports. Pt remains SB/SR 59-61bpm on CM. Pt remains on 022LNC with RR 20x with SPO2 96%.
[2017-02-27 05:29] LABS: HEMATOCRIT 25.9 % (36.0-48.0); HEMOGLOBIN 8.8 g/dL (12-16); MCH 31.7 pg (26.0-34.0); MCV 93.2 fL (80.0-100.0); PLATELET COUNT 109 10x3/uL (130-400); RBC 2.78 10x6/uL (4.00-5.40); RDW 15.8 % (11.5-14.5); WBC 39.7 10x3/uL (4.8-10.8)
[2017-02-27 05:48] LABS: ANION GAP 13.4 mmol/L (8-16); CALCIUM 8.1 mg/dL (8.5-10.1); CARBON DIOXIDE 26.1 mmol/L (21.0-32.0); CREATININE - SERUM 1.7 mg/dL (0.6-1.3); MAGNESIUM - SERUM 1.5 mg/dL (1.8-2.4); PHOSPHOROUS 2.2 mg/dL (2.5-4.9); POTASSIUM - SERUM 3.5 mmol/L (3.5-5.1)
--- NOTE | 2017-02-27 06:00 | NUR ---
0600: PO Rx admin at this time. Pt able to swallow without difficulty. Pt with no c/o at this time.
[2017-02-27 06:25] LABS: BASOPHILS 1 % (0-2); EOSINOPHILS 2 % (0-7); LYMPHOCYTES 13 % (15-50); MONOCYTES 13 % (2-11); NEUTROPHILS 52 % (40-80)
[2017-02-27 06:27] LABS: PLATELET ESTIMATE DECREASED
--- NOTE | 2017-02-27 07:30 | NUR ---
REC'D REPORT FROM OUT GOING RN. - PT AA&O X4 - DENIED ANY DISTRESS. CPOC
--- NOTE | 2017-02-27 09:00 | NUR ---
ASSESSMENT COMPLETE - CHANGED BED CLOTHES AND LINENS - PT C/O PAIN WITH MOVEMENT - AT REST PT DOES NOT C/O PAIN NOR DISCOMFORT BREAKFAST TRAY SERVIED FOR PT - CPOC
--- NOTE | 2017-02-27 09:30 | NUR ---
PT AA&O - PT AT 1/3 OF BREAKFAST TRAY - PT ASKED FOR A FRESH GLASS OF WATER - PT PLEASANT VOICED NO OTHER NEEDS.
--- NOTE | 2017-02-27 10:16 | NUR ---
PT'S HR CHANGED TO BRADYCARDIA IN 30s. THIS RN ASSESSED PT. CONFIRMED PT IS DNR. CHIQUITA DOWN TO 20S, STOP BREATHING, PT WITHOUT DISTRESS. DR. HURLEY ON UNIT - IMMEDIATLEY NOTIFIED MD - DR. HURLEY CALLED FAMILY (DTR.) MD LEFT MESSAGE FOR FAMILY TO CALL MD. TIME OF 10:22. RECORD OF SIGNED BY
--- NOTE | 2017-02-27 10:47 | NUR ---
REMOVED ALL LINES FROM PT - BATHED AND CHANGED BED CLOTHES - EXPECTING FAMILY VISITATION.
--- NOTE | 2017-02-27 11:59 | NUR ---
FAMILY IN ROOM - ANSWERED ALL QUESTIONS TO FAMILY'S SATISFACTION - CLOSED DOOR FOR PRIVACY. CALLED [facility] SPOKE TO RISSA - PT DID NOT MEET CRITERIA DUE TO SEPSIS
--- NOTE | 2017-02-27 12:45 | NUR ---
HOME TECH CAME FOR BODY WHO DISCUSSED PLAN WITH FAMILY. PAPERWORK COMPLETED PER POLICY
== END 2017-02-27 13:37 | DRG 871 ==
LOC: D.ER 23:08 → D.ICU 02-20 04:28
PROVIDERS: Emergency Medicine; Family Medicine; Internal Medicine Nephrology; Student in an Organized Health Care Education/Training Program; ADMIT Emergency Medicine
PROC: 0T9B70Z Drainage of Bladder with Drainage Device, Via Natural or Artificial Opening (ICD-10-PCS; principal; 2017-02-23)
DX: A41.9 Sepsis, unspecified organism (principal); N17.0 Acute kidney failure with tubular necrosis; G93.41 Metabolic encephalopathy; G93.49 Other encephalopathy; N12 Tubulo-interstitial nephritis, not specified as acute or chronic; E87.1 Hypo-osmolality and hyponatremia; Z68.41 Body mass index [BMI] 40.0-44.9, adult; R41.0 Disorientation, unspecified; Z66 Do not resuscitate; E11.65 Type 2 diabetes mellitus with hyperglycemia; I10 Essential (primary) hypertension; B96.1 Klebsiella pneumoniae [K. pneumoniae] as the cause of diseases classified elsewhere; I48.91 Unspecified atrial fibrillation; Z86.73 Personal history of transient ischemic attack (TIA), and cerebral infarction without residual deficits; E87.6 Hypokalemia; E66.01 Morbid (severe) obesity due to excess calories